=== PATIENT | female | born 1940 | race Caucasian/White ===

== ENCOUNTER → 2017-01-09 | Outpatient (CLI) | payer OTHER | LOC: BHLMT 14:00 | PROVIDERS: ATTEND Internal Medicine Cardiovascular Disease | DX: I10 Essential (primary) hypertension (principal) | CPT/HCPCS: 93306-PO ==

== ENCOUNTER 2018-11-06 12:07 | Day surgery (SDC) | payer OTHER | END 2018-11-06 15:15 | disposition home or self-care (01) | LOC: FIMAGING 12:07 ==